=== PATIENT | male | born 1995 | race Caucasian/White ===

== ENCOUNTER 2016-08-09 20:19 | Inpatient (IN) | payer OTHER ==
--- NOTE | 2016-08-09 21:27 | PDOC ---
History of Present Illness - General Chief Complaint: Pain Stated Complaint: STOMACH ACHE Time Seen by Provider: 08/09/16 21:02 History Source: Patient, Parent(s) Exam Limitations: No Limitations - History of Present Illness Travel History: No Timing/Duration: reports: intermittent Quality: reports: moderate Abdominal Pain Onset Location: reports: RLQ, LLQ Pain Radiation: reports: no radiation Past History - Travel Traveled outside of the country in the last 30 days: No Close contact w/someone who was outside of country & ill: No - Past Medical History Allergies/Adverse Reactions: Allergies Allergy/AdvReac Type Severity Reaction Status Date / Time No Known Allergies Allergy Verified 08/09/16 20:45 Home Medications: Ambulatory Orders NK [No Known Home Medication] 08/09/16 - Psycho/Social/Smoking Cessation Hx Suicidal Ideation: No Smoking History: Never smoked Have you smoked in the past 12 months: No Information on smoking cessation initiated: No Hx Alcohol Use: No Drug/Substance Use Hx: No Abd/GI Specific PMHX - Complaint Specific PMHX Colitis: No Diverticulitis: No Gall Bladder Disease: No GERD: No Review of Systems - Review of Systems Able to Perform ROS?: Yes Comments:: 08/09/16 21:43 CONSTITUTIONAL: Absent: fever, chills, diaphoresis, generalized weakness, malaise, loss of appetite HEENT: Absent: rhinorrhea, nasal congestion, throat pain, throat swelling, difficulty swallowing, mouth swelling, ear pain, eye pain, visual Changes CARDIOVASCULAR: Absent: chest pain, loss of consciousness, palpitations, irregular heart rate, peripheral edema RESPIRATORY: Absent: cough, shortness of breath, dyspnea with exertion, orthopnea, wheezing, stridor, hemoptysis GASTROINTESTINAL: RLQ>LLQ pain Absent: abdominal distension, nausea, vomiting, diarrhea, constipation, melena, hematochezia GENITOURINARY: Absent: dysuria, frequency, urgency, hesitancy, hematuria, flank pain, genital pain MUSCULOSKELETAL: Absent: myalgia, arthralgia, joint swelling SKIN: Absent: rash, itching, pallor HEMATOLOGIC/IMMUNOLOGIC: Absent: easy bleeding, easy bruising, lymphadenopathy, frequent infections ENDOCRINE: Absent: unexplained weight gain, unexplained weight loss, heat intolerance, cold intolerance NEUROLOGIC: Absent: headache, focal weakness or paresthesias, dizziness, unsteady gait, seizure, mental status changes, bladder or bowel incontinence PSYCHIATRIC: Absent: anxiety, depression, suicidal or homicidal ideation, hallucinations. Is the patient limited Samoan proficient: No *Physical Exam - Vital Signs Last Vital Signs Temp Pulse Resp BP Pulse Ox 98.5 F 85 16 124/70 99 08/09/16 20:46 08/09/16 20:46 08/09/16 20:46 08/09/16 20:46 08/09/16 20:46 - Physical Exam Comments: 08/09/16 21:44 GENERAL: Well developed, well nourished. Awake and alert. No acute distress. HEENT: Normocephalic, atraumatic. PERRLA, EOMI. No conjunctival pallor. Sclera are non- icteric. Moist mucous membranes. Oropharynx is clear. NECK: Supple. Full ROM. No JVD. Carotid pulses 2+ and symmetric, without bruits. No thyromegaly. No lymphadenopathy. CARDIOVASCULAR: Regular rate and rhythm. No murmurs, rubs, or gallops. Distal pulses are 2+ and symmetric. PULMONARY: No evidence of respiratory distress. Lungs clear to auscultation bilaterally. No wheezing, rales or rhonchi. ABDOMINAL: Diffused abd pain Soft. Non-distended. No rebound or guarding. No organomegaly. Normoactive bowel sounds. MUSCULOSKELETAL Normal range of motion at all joints. No bony deformities or tenderness. No CVA tenderness. EXTREMITIES: No cyanosis. No clubbing. No edema. No calf tenderness. SKIN: Warm and dry. Normal capillary refill. No rashes. No jaundice. NEUROLOGICAL: Alert, awake, appropriate. Cranial nerves 2-12 intact. No deficits to light touch and temperature in face, upper extremities and lower extremities. No motor deficits in the in face, upper extremities and lower extremities. Normoreflexic in the upper and lower extremities. Normal speech. Toes are down- going bilaterally. Gait is normal without ataxia. PSYCHIATRIC: Cooperative. Good eye contact. Appropriate mood and affect. ED Treatment Course - LABORATORY CBC & Chemistry Diagram: 08/10/16 05:30 08/10/16 05:30 - RADIOLOGY Radiograph Interpretation: 08/10/16 00:45 Patient Name: Jose E Allen THIS IS A PRELIMINARYREPORT FROM IMAGING MANAGER TREASURY EXAM: CT abdomen and pelvis with contrast IMAGES: 443 INDICATION: Right lower quadrant pain DATE OF SERVICE: 2016-08-09 23:41:19.0 COMPARISON: none FINDINGS: Lung bases are clear. The visualized cardiac chambers are normal size and configuration. Normal liver, gallbladder, pancreas, spleen, adrenal glands and kidneys. The stomach and abdominal small and large bowel are normal. There is no aortic aneurysm. There is no significant retroperitoneal lymphadenopathy. The appendix is dilated, does not contain oral contrast, contains a proximal appendicolith, consistent with acute appendicitis. No abscess or free air however there is a small to moderate amount of pelvic free fluid with several mildly secondarily inflamed small bowel loops.. The urinary bladder and prostate gland are normal. There is no significant pelvic lymphadenopathy. IMPRESSION: Acute appendicitis without abscess or free air. Small to moderate amount of pelvic free fluid with secondarily inflamed small bowel loops. THIS DOCUMENT HAS BEEN ELECTRONICALLY SIGNED Carlos Montelongo MD 08/10/2016 00:34 ELDA Biggs Please call [facility] D[facility] Cashier [phone] with questions. End of Report Content Atm Technician: ([email or web address]) Begin of Report Content Referring Physician: Amilcar Pierre Patient Name: Jose E Allen THIS IS A PRELIMINARYREPORT FROM IMAGING MANAGER TREASURY EXAM: CT abdomen and pelvis with contrast IMAGES: 443 INDICATION: Right lower quadrant pain DATE OF SERVICE: 2016-08-09 23:41:19.0 COMPARISON: none FINDINGS: Lung bases are clear. The visualized cardiac chambers are normal size and configuration. Normal liver, gallbladder, pancreas, spleen, adrenal glands and kidneys. The stomach and abdominal small and large bowel are normal. There is no aortic aneurysm. There is no significant retroperitoneal lymphadenopathy. The appendix is dilated, does not contain oral contrast, contains a proximal appendicolith, consistent with acute appendicitis. No abscess or free air however there is a small to moderate amount of pelvic free fluid with several mildly secondarily inflamed small bowel loops.. The urinary bladder and prostate gland are normal. There is no significant pelvic lymphadenopathy. IMPRESSION: Acute appendicitis without abscess or free air. Small to moderate amount of pelvic free fluid with secondarily inflamed small bowel loops. THIS DOCUMENT HAS BEEN ELECTRONICALLY SIGNED Carlos Montelongo MD 08/10/2016 00:34 ELDA Biggs Please call [facility] Cashier [phone] with questions. 08/10/16 03:35 Progress Note - Progress Note Progress Note: 20-year-old male presents to the emergency department complaining of lower, RLQ >LLQ abdominal pain since yesterday afternoon. Pain is associated with nausea and one bout of vomiting(nonbilious, nonbloody) without fever/chills. Pain is described as 8/10 intermittent pressure. Pain is exacerbated on movement and is alleviated minimally when laying supine. 0001hrs; Called Dr. Wilkinson/Surgery communications strategist [phone] 0030hrs: Called DR. Wilkinson/surgery communications strategist no response from Surgery communications strategist 0040hrs: Hospitalist notified for admission 0651hrs: Numerous calls were placed to Dr. Wilkinson/surgery communications strategist/no response 0727hrs; Spoke to Dr. Wilkinson/surgery communications strategist. will take pt for Lap Appy today *DC/Admit/Observation/Transfer Diagnosis at time of Disposition: Appendicitis, acute Qualifiers: Acute appendicitis type: unspecified acute appendicitis type Qualified Code(s) : K35.80 - Unspecified acute appendicitis - Discharge Dispostion Condition at time of disposition: Guarded Admit: Yes
[2016-08-09] MEDS ORDERED: SODIUM CHLORIDE 1,000 ML IV STA (21:33)
[2016-08-09 21:51] LABS: URINE APPEARANCE CLEAR; URINE BILIRUBIN NEGATIVE (NEGATIVE); URINE BLOOD NEGATIVE (NEGATIVE); URINE COLOR AMBER; URINE GLUCOSE (UA) NEGATIVE (NEGATIVE); URINE KETONE 1+ (NEGATIVE); URINE NITRITE NEGATIVE (NEGATIVE); URINE UROBILINOGEN NEGATIVE E.U./dl (0.2-1.0)
[2016-08-09 21:55] LABS: URINE LEUK ESTERASE 1+ (NEGATIVE); URINE PROTEIN 2+ (NEGATIVE)
[2016-08-09 21:57] LABS: BASOPHIL 0.3 % (0-2.0); EOSINOPHIL 0.1 % (0-4.5); MCH 29.5 pg (25.7-33.7); MCHC 32.8 g/dl (32.0-35.9); MEAN CELL VOLUME 90.1 fl (80-96); MEAN PLT VOLUME 7.8 fl (7.5-11.1); PLATELET COUNT 231 K/MM3 (134-434); WHITE BLOOD COUNT 14.8 K/mm3 (4.0-10.0)
[2016-08-09 21:58] LABS: URINE MUCUS MANY; URINE RBC 13 /hpf (0-3); URINE WBC 53 /hpf (3-5)
[2016-08-09 22:17] LABS: ALBUMIN 4.4 g/dl (3.4-5.0); ANION GAP 7 (8-16); BILIRUBIN,TOTAL 1.5 mg/dL (0.2-1.0); CALCIUM 8.8 mg/dL (8.5-10.1); CO2 30 mmol/L (21-32); CREATININE 0.9 mg/dL (0.7-1.3); GLUCOSE,RANDOM 107 mg/dL (74-106); SGOT/AST 16 U/L (15-37); SGPT/ALT 21 U/L (12-78); TOT PROT 7.4 g/dl (6.4-8.2)
[2016-08-09 22:18] LABS: ALK PHOS 110 U/L (45-117)
[2016-08-10] MEDS ORDERED: CEFTRIAXONE 1 GM in DEXTROSE 5%-WATER - 50 ML IVPB ONE (00:42)
[2016-08-10] MEDS ORDERED: METRONIDAZOLE 500 MG PREMIXED 100 ML IVPB ONE ×2 (00:43→01:01)
[2016-08-10] MEDS ORDERED: CEFTRIAXONE 50 ML ONE ×2 (00:59→01:00)
[2016-08-10] MEDS ORDERED: DEXTROSE 5%-0.45% SALINE 1,000 ML IV SCH (01:00)
--- NOTE | 2016-08-10 01:03 | HP ---
CHIEF COMPLAINT: RLQ, LLQ pain PCP: HISTORY OF PRESENT ILLNESS: This is a 20 year old male with no past medical history. Who presents to the emergency department with RLQ, LLQ pain and non bilious vomiting x1 day. Patient is Tajik speaking only. [employer] used name- Guero, #[id number]. Patient reports the pain is sharp, radiating and pain is worse on movement. Patient reports dysuria. Patient denies fever, chills, cough, dizziness, SOB, CP , diarrhea, constipation. ER course was notable for: (1) WBC 14.8 (2) CTAP- Acute Appendicitis without abscess or free air. (3) Recent Travel: None PAST MEDICAL HISTORY: None PAST SURGICAL HISTORY: None Social History: Smoking: None Alcohol: Occasional- Beer Drugs: None Family History: None Allergies No Known Allergies Allergy (Verified 08/09/16 20:45) HOME MEDICATIONS: Medication Instructions Recorded NK [No Known Home Medication] 08/09/16 REVIEW OF SYSTEMS CONSTITUTIONAL: Absent: fever, chills, diaphoresis, generalized weakness, malaise, loss of appetite, weight change HEENT: Absent: rhinorrhea, nasal congestion, throat pain, throat swelling, difficulty swallowing, mouth swelling, ear pain, eye pain, visual changes CARDIOVASCULAR: Absent: chest pain, syncope, palpitations, irregular heart rate, lightheadedness , peripheral edema RESPIRATORY: Absent: cough, shortness of breath, dyspnea with exertion, orthopnea, wheezing, stridor, hemoptysis GASTROINTESTINAL: abdominal pain, nausea, vomiting Absent: abdominal distension, diarrhea, constipation, melena, hematochezia GENITOURINARY: dysuria Absent: frequency, urgency, hesitancy, hematuria, flank pain, genital pain MUSCULOSKELETAL: Absent: myalgia, arthralgia, joint swelling, back pain, neck pain SKIN: Absent: rash, itching, pallor HEMATOLOGIC/IMMUNOLOGIC: Absent: easy bleeding, easy bruising, lymphadenopathy, frequent infections ENDOCRINE: Absent: unexplained weight gain, unexplained weight loss, heat intolerance, cold intolerance NEUROLOGIC: Absent: headache, focal weakness or paresthesias, dizziness, unsteady gait, seizure, mental status changes, bladder or bowel incontinence PSYCHIATRIC: Absent: anxiety, depression, suicidal or homicidal ideation, hallucinations. PHYSICAL EXAMINATION Vital Signs - 24 hr 08/09/16 20:46 Temperature 98.5 F Pulse Rate 85 Respiratory 16 Rate Blood Pressure 124/70 O2 Sat by Pulse 99 Oximetry (%) GENERAL: Awake, alert, and fully oriented, in no acute distress. HEAD: Normal with no signs of trauma. EYES: Pupils equal, round and reactive to light, extraocular movements intact, sclera anicteric, conjunctiva clear. No lid lag. EARS, NOSE, THROAT: Ears normal, nares patent, oropharynx clear without exudates. Moist mucous membranes. NECK: Normal range of motion, supple without lymphadenopathy, JVD, or masses. LUNGS: Breath sounds equal, clear to auscultation bilaterally. No wheezes, and no crackles. No accessory muscle use. HEART: Regular rate and rhythm, normal S1 and S2 without murmur, rub or gallop. ABDOMEN:+RLQ, LLQ, LMQ tenderness, hypoactive bowel sounds,+rebound, +psoas, Soft, not distended, no guarding, no masses. No hepatomegaly or splenomegaly. MUSCULOSKELETAL: Normal range of motion at all joints. No bony deformities or tenderness. No CVA tenderness. UPPER EXTREMITIES: 2+ pulses, warm, well-perfused. No cyanosis. No clubbing. Cap refill <2 seconds. No peripheral edema. LOWER EXTREMITIES: 2+ pulses, warm, well-perfused. No calf tenderness. No peripheral edema. NEUROLOGICAL: Cranial nerves II-XII intact. Normal speech. Gait no observed. PSYCHIATRIC: Cooperative. Good eye contact. Appropriate mood and affect. SKIN: Warm, dry, normal turgor, no rashes or lesions noted. Laboratory Results - last 24 hr 08/09/16 08/09/16 08/09/16 21:30 21:30 21:30 WBC 14.8 H RBC 4.66 Hgb 13.7 Hct 42.0 MCV 90.1 MCHC 32.8 RDW 13.0 Plt Count 231 MPV 7.8 Neutrophils % 89.0 H Lymphocytes % 4.2 L Monocytes % 6.4 Eosinophils % 0.1 Basophils % 0.3 Sodium 137 Potassium 4.1 Chloride 100 Carbon Dioxide 30 Anion Gap 7 L BUN 14 Creatinine 0.9 Creat Clearance w eGFR > 60 Random Glucose 107 H Calcium 8.8 Total Bilirubin 1.5 H AST 16 ALT 21 Alkaline Phosphatase 110 Total Protein 7.4 Albumin 4.4 Urine Color Sugey Urine Appearance Clear Urine pH 5.0 Ur Specific [place] 1.039 H Urine Protein 2+ H Urine Glucose (UA) Negative Urine Ketones 1+ H Urine Blood Negative Urine Nitrite Negative Urine Bilirubin Negative Urine Urobilinogen Negative Ur Leukocyte Esterase 1+ H Urine RBC 13 Urine WBC 53 Ur Epithelial Cells Rare Urine Mucus Many ASSESSMENT/PLAN: This is a 20 year old male with no PMHx. Who presented to the ED with abdominal pain and vomiting x 1 day. Admitted for Acute Appendicitis for further evaluation of their emergent condition. Plan: 1. Acute Appendicitis - Admit m/s - WBC 14.8 with left shift - CTAP- Acute AP without abscess or free air - Rocephin, Flagyl given in ED - Appreciate Surgical Consult - NPO - IVF - Continue Rocephin, Flagyl - Morphine Sulfate 2mg Q4h prn - Zofran IV - Monitor vitals - Tylenol IV prn - Monitor CBC - added on labs for pre-op 2. F/E/N - D51/2NS@100cc/hr - Replete lytes prn - NPO 3. DVT Prophylaxis - OOB - SCDs Code Status: Patient is a Full Code Problem List - Problem (1) Appendicitis, acute Code(s): K35.80 - UNSPECIFIED ACUTE APPENDICITIS Qualifiers: Acute appendicitis type: unspecified acute appendicitis type Qualified Code(s): K35.80 - Unspecified acute appendicitis (2) DVT prophylaxis Code(s): FAU8011 - Visit type - Emergency Visit Emergency Visit: Yes ED Registration Date: 08/09/16 Care time: The patient presented to the Emergency Department on the above date and was hospitalized for further evaluation of their emergent condition. - New Patient This patient is new to me today: Yes Date on this admission: 08/10/16 - Critical Care Critical Care patient: No
[2016-08-10] MEDS ORDERED: morphine CARPU-JECT 2 MG/1 ML DISP.SYRIN ONE ×2 (01:44→06:52)
[2016-08-10] MEDS ORDERED: ONDANSETRON 4 MG/2 ML VIAL IVPUSH PRN ×2 (01:45→10:49)
[2016-08-10] MEDS: morphine CARPU-JECT 4 MG/1 ML DISP.SYRIN IVPUSH PRN ×2 (01:50→06:55)
[2016-08-10 07:15] LABS: BASOPHIL 0.1 % (0-2.0); MCH 30.3 pg (25.7-33.7); MCHC 33.4 g/dl (32.0-35.9); MEAN CELL VOLUME 90.7 fl (80-96); MEAN PLT VOLUME 7.9 fl (7.5-11.1); NEUTROPHILS 85.6 % (42.8-82.8); PLATELET COUNT 202 K/MM3 (134-434); RDW 13.2 % (11.9-15.9); WHITE BLOOD COUNT 17.5 K/mm3 (4.0-10.0)
[2016-08-10 07:39] LABS: CALCIUM 8.1 mg/dL (8.5-10.1); CREATININE 0.7 mg/dL (0.7-1.3)
[2016-08-10] MEDS ORDERED: ONDANSETRON 4 MG/2 ML VIAL ONE ×2 (08:35→09:47)
--- NOTE | 2016-08-10 08:57 | CONSULT ---
Consult Consult Specialty:: Surgery Reason for Consultation:: Acute appendicitis - History of Present Illness History of Present Illness: 20 male presents for abdominal pain x 1- 2 days Pain began near umbilicus and has become more prominent in the RLQ + Nausea No diarrhea No previous similar episodes - History Source History Provided By: Patient, Medical Record Limitations to Obtaining History: Language Barrier (Used phone translation services) - Past Surgical History Past Surgical History: Yes: None - Alcohol/Substance Use Hx Alcohol Use: No - Smoking History Smoking history: Never smoked Have you smoked in the past 12 months: No - Social History ADL: Independent Home Medications - Allergies Allergies/Adverse Reactions: Allergies Allergy/AdvReac Type Severity Reaction Status Date / Time No Known Allergies Allergy Verified 08/09/16 20:45 - Home Medications Home Medications: Ambulatory Orders NK [No Known Home Medication] 08/09/16 Family Disease History - Family Disease History Family History: Unremarkable Review of Systems - Review of Systems Constitutional: denies: Chills, Fever Neck: reports: No Symptoms Cardiovascular: denies: Chest Pain Respiratory: denies: Cough Gastrointestinal: reports: Abdominal Pain, Nausea. denies: Diarrhea Genitourinary: reports: No Symptoms Neurological: denies: Change in LOC Pain Intensity: 4 Physical Exam Vital Signs: Vital Signs Temperature 97.3 F L 08/10/16 05:35 Pulse Rate 78 08/10/16 05:35 Respiratory Rate 20 08/10/16 05:35 Blood Pressure 109/47 08/10/16 05:35 O2 Sat by Pulse Oximetry (%) 98 08/10/16 05:35 Constitutional: Yes: Calm Neck: Yes: Supple Cardiovascular: Yes: Regular Rate and Rhythm Respiratory: Yes: CTA Bilaterally Gastrointestinal: Yes: Soft, Tenderness (RLQ). No: Distention Neurological: Yes: Alert, Oriented Labs: CBC, BMP 08/10/16 05:30 08/10/16 05:30 Imaging - Results Cat Scan: Report Reviewed, Image Reviewed Problem List - Problems (1) Appendicitis, acute Code(s): K35.80 - UNSPECIFIED ACUTE APPENDICITIS Qualifiers: Acute appendicitis type: unspecified acute appendicitis type Qualified Code(s): K35.80 - Unspecified acute appendicitis Assessment/Plan 20 male with acute appendicitis No abscess on CT For laparoscopic possible open appendectomy NPO Antibiotics Risks and benefits explained Understands and agrees
[2016-08-10] MEDS ORDERED: PROPOFOL 20 ML ONE (09:30)
[2016-08-10] MEDS ORDERED: LIDOCAINE HCL/PF 2% SDV 5ML VIAL ONE (09:30)
[2016-08-10] MEDS ORDERED: SUCCINYLCHOLINE CHLORIDE 200 MG/10 ML VIAL ONE (09:31)
[2016-08-10] MEDS ORDERED: ceFAZolin SODIUM 1 GM VIAL IVPB ONE (09:45)
[2016-08-10] MEDS ORDERED: DEXAMETHASONE SOD PHOSPHATE 4 MG/1 ML VIAL ONE (09:47)
[2016-08-10] MEDS ORDERED: ROCURONIUM BROMIDE 50 MG/5 ML VIAL ONE (09:47)
[2016-08-10] MEDS ORDERED: ceFAZolin SODIUM 1 GM VIAL ONE (09:47)
[2016-08-10] MEDS ORDERED: KETOROLAC TROMETHAMINE 30 MG/1 ML VIAL ONE (09:47)
[2016-08-10] MEDS ORDERED: METRONIDAZOLE 500 MG PREMIXED 100 ML IVPB SCH (10:00)
[2016-08-10] MEDS ORDERED: GLYCOPYRROLATE 0.2 MG/1 ML VIAL ONE ×2 (10:22)
[2016-08-10] MEDS ORDERED: NEOSTIGMINE METHYLSULFATE 0.5 MG/ML - 10 ML MDV ONE (10:22)
[2016-08-10] MEDS ORDERED: BUPIVACAINE HCL/PF 0.5% (5MG/ML) 10 ML VIAL ONE (10:28)
[2016-08-10] MEDS ORDERED: BUPIVACAINE HCL/PF 0.5% (5MG/ML) 10 ML VIAL IJ ONE ×2 (10:31)
[2016-08-10] MEDS ORDERED: oxyCODONE HCL 5 MG TABLET PO PRN ×2 (10:49→11:45)
[2016-08-10] MEDS ORDERED: PROMETHAZINE HCL 25 MG/1 ML VIAL IVPUSH PRN (10:49)
--- NOTE | 2016-08-10 11:11 | OP ---
Operative Note - Note: Operative Date: 08/10/16 Pre-Operative Diagnosis: Acute appendicitis Operation: Laparoscopic appendectomy Findings: Perforated necrotic appendix with purulence Post-Operative Diagnosis: Other (Perforated necrotic appendicitis with purulent intraabdominal fluid) Surgeon: Toro Wilkinson Grain Merchandiser: Kayy Curiel Anesthesia: General Specimens Removed: Appendix Estimated Blood Loss (mls): 20 Operative Report Dictated: Yes
[2016-08-10] MEDS ORDERED: morphine CARPU-JECT 4 MG/1 ML DISP.SYRIN IVPUSH PRN (11:45)
[2016-08-10] MEDS ORDERED: PIPERACILLIN/TAZOB 3.375 GM/50 ML PRE-DOCKED IVPB ONE ×2 (11:45→18:00)
[2016-08-10] MEDS ORDERED: HYDROmorphone HCL CARPU-JECT 1 MG/1 ML DISP.SYRIN IVPB PRN (12:32)
--- NOTE | 2016-08-10 12:48 | OP ---
DATE OF OPERATION: 08/10/2016 PREOPERATIVE DIAGNOSIS: Acute appendicitis. POSTOPERATIVE DIAGNOSIS: Perforated necrotic appendicitis with purulent intraabdominal collection. PROCEDURE: Laparoscopic appendectomy. ANESTHESIA: GET. SURGEON: Jessica Wilkinson MD SHAKER OUT: Michelle Curiel SPECIMEN: Appendix. DRAINS: NBA x1. REASON FOR PROCEDURE: This is a 20-year-old male who presented to the hospital with right lower quadrant pain x1-[address] of the abdomen and pelvis demonstrated acute appendicitis without abscess formation. His white count was noted to be 14, which increased to 17. He was placed n.p.o. and placed on antibiotics. He was consented for a laparoscopic, possible open, appendectomy. The risks and benefits of the procedure were explained. These included bleeding, infection, hernia, OK, DVT, PE, injury to surrounding intraabdominal structures including the bowel, colon, ureter, bladder, as well as other intraabdominal organs, staple line dehiscence, abscess formation as some of the complications. Patient understood and signed informed consent. DESCRIPTION OF PROCEDURE: The patient was placed supine on the operating table. He underwent general endotracheal intubation. A Crowley catheter was inserted. The abdomen was prepped and draped in the usual sterile fashion. Time-out was performed. An infraumbilical incision was made, and entrance to the abdominal cavity was obtained using a 5-mm optical trocar under direct visualization with laparoscope. Pneumoperitoneum was established. Immediately, it was noted that there was extensive purulent discharge throughout the abdominal cavity and fibrinous exudate. A 5- mm optical trocar was then placed in the suprapubic area, and a 12-mm trocar was placed in the left lower quadrant. The patient was placed in Trendelenburg right-side- up position. Carefully, the bowel was run towards the juncture of the terminal ileum and cecum. Again, extensive fibrinous discharge was noted, and then, each bowel loop had to be teased off of the adjacent bowel loop carefully. The appendix was identified and was noted to be adherent to the right lateral abdominal wall. The base of the appendix was noted. A window was created within the mesentery using a [place] dissector. The appendix was also noted to be freely perforated with purulent discharge and necrosis from the tip to at least its midway point. The base of the appendix was transected using an Endo DANNIELLE stapler with a white load. The appendix was freed from the right lateral abdominal wall using hook electrocautery. The mesoappendix was then stapled using an Endo DANNIELLE stapler with a white load. The appendix was placed in an EndoCatch bag. Clips were used to further secure the staple line at the base of the appendix. Hemostasis was noted. Copious irrigation suction was performed until clear. Because of the perforation, a flat NBA drain was placed through the suprapubic trocar site. The fascia at the 12-mm site was closed laparoscopically using a 0 Vicryl suture with a Shawn-Jaqueline device. Again, hemostasis was noted, and again, no further purulence was noted. All fluid was suctioned from the abdominal cavity including the right upper quadrant, right lateral wall, and pelvis. The specimen was removed and sent off the field. Pneumoperitoneum was desufflated. The drain was secured with a 2-0 silk suture. The fascial suture was secured. Marcaine was injected at all incision sites. NBA drain was placed to self-suction. The 12-mm trocar site and the infraumbilical incision site were closed using 4-0 Biosyn. Sterile dressings were applied. The patient tolerated the procedure well and was transferred to the recovery room in stable condition. He was continued on IV antibiotics. The description of the findings was explained to both him and his family. JESSICA WILKINSON M.D. [id number] MTDD
--- NOTE | 2016-08-10 14:49 | SURG ---
Surgery Wound Care Technician Note Wound Care Technician: Kayy Curiel PA-C Date of Service: 08/10/16 Diagnosis: Acute appendicitis, Perforated necrotic appendix with purulence Procedure: Laparoscopic appendectomy I was present for the entirety of the operative procedure. For further detail, please refer to operative report. Visit type - Case Type Case Type: ED Admission - New patient This patient is new to me today: Yes Date on this admission: 08/10/16
[2016-08-10] MEDS: SODIUM CHLORIDE 1,000 ML IV SCH (15:40)
--- NOTE | 2016-08-10 15:58 | HOSP ---
Physical Examination Vital Signs: Vital Signs Temperature 100 F H 08/10/16 10:45 Pulse Rate 77 08/10/16 15:00 Respiratory Rate 18 08/10/16 15:00 Blood Pressure 120/51 08/10/16 15:00 O2 Sat by Pulse Oximetry (%) 99 08/10/16 15:00 Findings/Remarks: Subjective: The patient was seen and examined in the PACU. He denies any pain at this time. Discussed with Dr. Wilkinson who states the patient will need IV abx x72 hours Current Medications Generic Name Dose Route Start Last Admin Trade Name Freq PRN Reason Stop Dose Admin Enoxaparin Sodium 40 mg 08/11/16 10:00 Lovenox - SQ DAILY JEEWLL Hydromorphone HCl 1 mg 08/10/16 12:32 Dilaudid Injection - IVPB Q4H PRN PAIN Sodium Chloride 1,000 mls @ 150 mls/hr 08/10/16 11:15 Normal Saline - IV ASDIR JEWELL Metronidazole 100 mls @ 100 mls/hr 08/10/16 18:00 Flagyl 500mg Premixed Ivpb - IVPB Q8H-IV JEWELL Oxycodone HCl 10 mg 08/10/16 11:45 Roxicodone - PO 08/11/16 10:48 Q4H PRN SEVERE PAIN Piperacillin Sod/Tazobactam Sod 3.375 gm 08/10/16 18:00 Zosyn 3.375gm Ivpb (Pre-Docked) IVPB Q8H-IV JEWELL Objective: Vital Signs Period Temp Pulse Resp BP Sys/Reagan Pulse Ox Last 24 Hr 97.3 F-100 F 69-93 16-20 109-135/47-70 98-100 Physical Exam: General: NAD, A&Ox3 Lungs: CTA bilaterally Heart: RRR, S1S2 Abd: Lap sites x2 with dressing, c/d/i. RLQ NBA drain with serosangenous drainage. Soft, non-distended Ext: Warm, well-perfused. 2+ DP/PT bilaterally Neuro: CN 2-12 intact CBCD WBC 17.5 K/mm3 (4.0-10.0) H 08/10/16 05:30 RBC 4.15 M/mm3 (4.00-5.60) 08/10/16 05:30 Hgb 12.6 GM/dL (11.7-16.9) 08/10/16 05:30 Hct 37.7 % (35.4-49) 08/10/16 05:30 MCV 90.7 fl (80-96) 08/10/16 05:30 MCHC 33.4 g/dl (32.0-35.9) 08/10/16 05:30 RDW 13.2 % (11.9-15.9) 08/10/16 05:30 Plt Count 202 K/MM3 (134-434) 08/10/16 05:30 MPV 7.9 fl (7.5-11.1) 08/10/16 05:30 CMP Sodium 135 mmol/L (136-145) L 08/10/16 05:30 Potassium 4.3 mmol/L (3.5-5.1) 08/10/16 05:30 Chloride 101 mmol/L (98-107) 08/10/16 05:30 Carbon Dioxide 25 mmol/L (21-32) 08/10/16 05:30 Anion Gap 9 (8-16) 08/10/16 05:30 BUN 11 mg/dL (7-18) D 08/10/16 05:30 Creatinine 0.7 mg/dL (0.7-1.3) D 08/10/16 05:30 Creat Clearance w eGFR > 60 (>60) 08/09/16 21:30 Random Glucose 103 mg/dL (74-106) 08/10/16 05:30 Calcium 8.1 mg/dL (8.5-10.1) L 08/10/16 05:30 Total Bilirubin 1.5 mg/dL (0.2-1.0) H 08/09/16 21:30 AST 16 U/L (15-37) 08/09/16 21:30 ALT 21 U/L (12-78) 08/09/16 21:30 Alkaline Phosphatase 110 U/L (45-117) 08/09/16 21:30 Total Protein 7.4 g/dl (6.4-8.2) 08/09/16 21:30 Albumin 4.4 g/dl (3.4-5.0) 08/09/16 21:30 Assessment: This is a 20 year old male with no significant PMHx who presented to the ED with RLQ pain, nausea, vomiting x1 days and was found to have acute appendicitis Plan: 1) GI: Acute appendicitis s/p lap appendectomy - Per surgery, perforated necrotic appendicitis with purulent intraabdominal fluid - Continue Zosyn, Flagyl per surgery - Monitor WBC, remains elevated - Tmax 100.0 - Clear liquid diet - Appreciate surgery consult - F/u ID consult 2) F/E/N: - Clear liquid diet - Monitor electrolytes 3) Prophylaxis: - Lovenox 40mg sq daily - OOB ambulating 4) Dispo: - Requires 72 hours of IV abx per surgery CODE STATUS: FULL CODE
[2016-08-10 16:35] VITALS: BMI 24.0
[2016-08-10] MEDS: METRONIDAZOLE 500 MG PREMIXED 100 ML IVPB SCH (17:07)
[2016-08-10] MEDS: PIPERACILLIN/TAZOB 3.375 GM/50 ML PRE-DOCKED IVPB SCH (18:12)
[2016-08-11] MEDS: SODIUM CHLORIDE 1,000 ML IV SCH ×2 (00:40→11:38)
[2016-08-11] MEDS: METRONIDAZOLE 500 MG PREMIXED 100 ML IVPB SCH ×3 (01:30→17:06)
[2016-08-11] MEDS: PIPERACILLIN/TAZOB 3.375 GM/50 ML PRE-DOCKED IVPB SCH (02:09)
[2016-08-11 09:02] LABS: BASOPHIL 0.1 % (0-2.0); EOSINOPHIL 0.1 % (0-4.5); MCH 30.2 pg (25.7-33.7); MCHC 33.2 g/dl (32.0-35.9); MEAN CELL VOLUME 91.2 fl (80-96); MEAN PLT VOLUME 8.2 fl (7.5-11.1); NEUTROPHILS 86.4 % (42.8-82.8); PLATELET COUNT 189 K/MM3 (134-434); RDW 12.7 % (11.9-15.9); WHITE BLOOD COUNT 14.2 K/mm3 (4.0-10.0)
--- NOTE | 2016-08-11 09:15 | PN ---
Progress Note (short form) - Note Progress Note: ID Consult for this 20 year old male originally from [place] who has been operated on for appendcitis found to be perforated. today is ay 1 post op and he is doing well. [place] been in [place] with no prior medical history Currently on Zosyn No operative culture sent. Selected Entries 08/11/16 06:51 Temperature 98.3 F Pulse Rate 61 Respiratory 18 Rate Blood Pressure 133/73 Lung Clear ausculation Cor S1 S RR Abd Drain lower abd soft post op Microbiology 08/10/16 01:45 Blood - Peripheral Venous Blood Culture - Preliminary NO GROWTH OBTAINED AFTER 24 HOURS, INCUBATION TO CONTINUE FOR 4 DAYS. 08/10/16 01:45 Blood - Peripheral Venous Blood Culture - Preliminary NO GROWTH OBTAINED AFTER 24 HOURS, INCUBATION TO CONTINUE FOR 4 DAYS. Laboratory Tests 08/09/16 08/10/16 08/11/16 21:30 05:30 06:45 WBC 14.2 H Hgb 11.8 Plt Count 189 BUN 11 D Creatinine 0.7 D Urine WBC 53 Assessment Necrotic perf appendix day 1 post op Also has UTI Plan Ceftriaxone 2 grs and metronidazole 500mg q8H Urine c/s HIV testing Problem List - Problems (1) Appendicitis, acute Code(s): K35.80 - UNSPECIFIED ACUTE APPENDICITIS Qualifiers: Acute appendicitis type: unspecified acute appendicitis type Qualified Code(s): K35.80 - Unspecified acute appendicitis
--- NOTE | 2016-08-11 09:48 | PN ---
Progress Note (short form) - Note Progress Note: General Surgery- Dr. Wilkinson Patient seen and examined. Patient is feeling well, having some pain with movement, but this pain is tolerable and controlled. Patient has been tolerating his clear liquid diet without nausea or vomiting. He has been voiding spontaneously. He has no other complaints. Denies F/C/N/V. Last Vital Signs Temp Pulse Resp BP Pulse Ox 98.3 F 61 18 133/73 97 08/11/16 06:51 08/11/16 06:51 08/11/16 06:51 08/11/16 06:51 08/10/16 21:00 CBC, BMP 08/11/16 06:45 BMP pending Blood cultures: No growth- prelim NBA drain 165 ml yesterday, 60 ml recorded today Exam: Gen: NAD, resting comfortably in bed Abd: soft, nondistended, tender to palp, NBA drain in place with serosanguineous drainage, dressings clean/dry/intact <Kayy Curiel - Last Filed: 08/11/16 12:49> - Note Progress Note: Agree POD 1 Laparoscopic appendectomy Pain controlled Tolerated clears AVSS Abd soft, NBA serosanguinous WBC 14 H/H stable Antibiotics Regular diet OOB CBC in am <Toro Wilkinson - Last Filed: 08/11/16 14:38> Problem List - Problems (1) Appendicitis, acute Assessment/Plan: POD#1 s/p laparoscopic appendectomy with perforated appendix Continue IV abx per ID, ceftriaxone and flagyl Continue pain control with oral pain medication, oxycodone and tylenol Monitor NBA output Advance to regular diet OOB, ambulate, DVT prophylaxis Code(s): K35.80 - UNSPECIFIED ACUTE APPENDICITIS <Kayy Curiel - Last Filed: 08/11/16 12:49> - Problems (1) Appendicitis, acute Code(s): K35.80 - UNSPECIFIED ACUTE APPENDICITIS Qualifiers: Acute appendicitis type: unspecified acute appendicitis type Qualified Code(s): K35.80 - Unspecified acute appendicitis <Toro Wilkinson - Last Filed: 08/11/16 14:38>
[2016-08-11 09:49] LABS: CALCIUM 8.2 mg/dL (8.5-10.1)
[2016-08-11 09:51] LABS: CREATININE 0.8 mg/dL (0.7-1.3)
[2016-08-11] MEDS: cefTRIAXone 2 GM/100 ML BAG (PRE-DOCKED) IVPB SCH (09:56)
[2016-08-11] MEDS: ENOXAPARIN NA (PORCINE) 40 MG/0.4 ML DISP.SYRIN SQ SCH (09:56)
[2016-08-11] MEDS ORDERED: CEFTRIAXONE 50 ML IVPB SCH (10:00)
[2016-08-11 11:55] LABS: HIV 1 & 2 AB NEGATIVE; HIV 1 AGp24 NEGATIVE
--- NOTE | 2016-08-11 12:28 | PN ---
Progress Note (short form) - Note Progress Note: ANESTHESIA POST-OP CHECK 20M S/P laparoscopic appendectomy under general anesthesia POD #1. No acute complaints, denies N/V. Pain 4/10, ambulating, tolerating PO. Vital Signs Temperature 98.4 F 08/11/16 10:00 Pulse Rate 55 L 08/11/16 10:00 Respiratory Rate 20 08/11/16 10:00 Blood Pressure 128/70 08/11/16 10:00 O2 Sat by Pulse Oximetry (%) 98 08/11/16 09:00 Active Medications Ceftriaxone Sodium (Rocephin 2gm Ivpb (Pre-Docked)) 2 gm IVPB DAILY [facility] Last Admin: 08/11/16 09:56 Dose: 2 gm Enoxaparin Sodium (Lovenox -) 40 mg SQ DAILY [facility] Last Admin: 08/11/16 09:56 Dose: 40 mg Hydromorphone HCl (Dilaudid Injection -) 1 mg IVPB Q4H PRN PRN Reason: PAIN Sodium Chloride (Normal Saline -) 1,000 mls @ 150 mls/hr IV ASDIR [facility] Last Admin: 08/11/16 11:38 Dose: Not Given Metronidazole (Flagyl 500mg Premixed Ivpb -) 100 mls @ 100 mls/hr IVPB Q8H-IV [facility] Last Admin: 08/11/16 10:41 Dose: 100 mls/hr Gen: Awake, alert No apparent anesthesia complications. Pain well controlled. Continue management as per primary team.
--- NOTE | 2016-08-11 12:49 | PN ---
Progress Note (short form) - Note Progress Note: Subjective: The patient was seen and examined at the bedside, he has no complaints at this time Diet increased to regular per surgery Current Medications Generic Name Dose Route Start Last Admin Trade Name Jana PRN Reason Stop Dose Admin Ceftriaxone Sodium 2 gm 08/11/16 10:00 08/11/16 09:56 Rocephin 2gm Ivpb (Pre-Docked) IVPB 2 gm DAILY JEWELL Administration Enoxaparin Sodium 40 mg 08/11/16 10:00 08/11/16 09:56 Lovenox - SQ 40 mg DAILY JEWELL Administration Hydromorphone HCl 1 mg 08/10/16 12:32 Dilaudid Injection - IVPB Q4H PRN PAIN Sodium Chloride 1,000 mls @ 150 mls/hr 08/10/16 11:15 08/11/16 11:38 Normal Saline - IV Not Given ASDIR JEWELL Metronidazole 100 mls @ 100 mls/hr 08/10/16 18:00 08/11/16 10:41 Flagyl 500mg Premixed Ivpb - IVPB 100 mls/hr Q8H-IV JEWELL Administration Objective: Vital Signs Period Temp Pulse Resp BP Sys/Reagan Pulse Ox Last 24 Hr 97.8 F-99.5 F 55-78 16-20 111-137/48-73 97-100 Physical Exam: General: NAD, A&Ox3 Lungs: CTA bilaterally Heart: RRR, S1S2 Abd: Lap sites x2 with dressing, c/d/i. RLQ NBA drain with serosangenous drainage. Soft, non-distended Ext: Warm, well-perfused. 2+ DP/PT bilaterally Neuro: CN 2-12 intact CBCD WBC 14.2 K/mm3 (4.0-10.0) H 08/11/16 06:45 RBC 3.90 M/mm3 (4.00-5.60) L 08/11/16 06:45 Hgb 11.8 GM/dL (11.7-16.9) 08/11/16 06:45 Hct 35.5 % (35.4-49) 08/11/16 06:45 MCV 91.2 fl (80-96) 08/11/16 06:45 MCHC 33.2 g/dl (32.0-35.9) 08/11/16 06:45 RDW 12.7 % (11.9-15.9) 08/11/16 06:45 Plt Count 189 K/MM3 (134-434) 08/11/16 06:45 MPV 8.2 fl (7.5-11.1) 08/11/16 06:45 CMP Sodium 139 mmol/L (136-145) 08/11/16 06:45 Potassium 3.9 mmol/L (3.5-5.1) 08/11/16 06:45 Chloride 105 mmol/L (98-107) 08/11/16 06:45 Carbon Dioxide 25 mmol/L (21-32) 08/11/16 06:45 Anion Gap 9 (8-16) 08/11/16 06:45 BUN 12 mg/dL (7-18) 08/11/16 06:45 Creatinine 0.8 mg/dL (0.7-1.3) 08/11/16 06:45 Creat Clearance w eGFR > 60 (>60) 08/09/16 21:30 Random Glucose 90 mg/dL (74-106) 08/11/16 06:45 Calcium 8.2 mg/dL (8.5-10.1) L 08/11/16 06:45 Total Bilirubin 1.5 mg/dL (0.2-1.0) H 08/09/16 21:30 AST 16 U/L (15-37) 08/09/16 21:30 ALT 21 U/L (12-78) 08/09/16 21:30 Alkaline Phosphatase 110 U/L (45-117) 08/09/16 21:30 Total Protein 7.4 g/dl (6.4-8.2) 08/09/16 21:30 Albumin 4.4 g/dl (3.4-5.0) 08/09/16 21:30 Microbiology 08/10/16 01:45 Blood - Peripheral Venous Blood Culture - Preliminary NO GROWTH OBTAINED AFTER 24 HOURS, INCUBATION TO CONTINUE FOR 4 DAYS. 08/10/16 01:45 Blood - Peripheral Venous Blood Culture - Preliminary NO GROWTH OBTAINED AFTER 24 HOURS, INCUBATION TO CONTINUE FOR 4 DAYS. Assessment: This is a 20 year old male with no significant PMHx who presented to the ED with RLQ pain, nausea, vomiting x1 days and was found to have acute appendicitis Plan: 1) GI: Acute appendicitis s/p lap appendectomy - Per surgery, perforated necrotic appendicitis with purulent intraabdominal fluid - Zosyn changed to Ceftriaxone 2g - Continue Flagyl - Monitor WBC, trending down - Continue NBA drain - Appreciate surgery consult - Appreciate ID consult 2) F/E/N: - Regular diet - Monitor electrolytes 3) Prophylaxis: - Lovenox 40mg sq daily - OOB ambulating 4) Dispo: - Once condition improves CODE STATUS: FULL CODE Visit type - Emergency Visit Emergency Visit: Yes ED Registration Date: 08/10/16 Care time: The patient presented to the Emergency Department on the above date and was hospitalized for further evaluation of their emergent condition. - New Patient This patient is new to me today: No - Critical Care Critical Care patient: No
[2016-08-11] MEDS ORDERED: oxyCODONE HCL 5 MG TABLET PO PRN (15:02)
[2016-08-12] MEDS: SODIUM CHLORIDE 1,000 ML IV SCH ×3 (01:05→18:49)
[2016-08-12] MEDS: METRONIDAZOLE 500 MG PREMIXED 100 ML IVPB SCH ×3 (02:04→17:54)
[2016-08-12] MEDS: ACETAMINOPHEN 325 MG TABLET (FP) PO PRN (05:25)
[2016-08-12 07:21] LABS: BASOPHIL 0.2 % (0-2.0); EOSINOPHIL 0.6 % (0-4.5); MCH 30.6 pg (25.7-33.7); MCHC 33.7 g/dl (32.0-35.9); MEAN CELL VOLUME 90.9 fl (80-96); MEAN PLT VOLUME 7.7 fl (7.5-11.1); NEUTROPHILS 83.4 % (42.8-82.8); PLATELET COUNT 222 K/MM3 (134-434); RDW 12.9 % (11.9-15.9); WHITE BLOOD COUNT 9.8 K/mm3 (4.0-10.0)
[2016-08-12 07:58] LABS: ALBUMIN 2.7 g/dl (3.4-5.0); ALK PHOS 65 U/L (45-117); ANION GAP 8 (8-16); BILIRUBIN,TOTAL 0.5 mg/dL (0.2-1.0); CALCIUM 8.6 mg/dL (8.5-10.1); CO2 26 mmol/L (21-32); CREATININE 0.7 mg/dL (0.7-1.3); GLUCOSE,RANDOM 117 mg/dL (74-106); SGOT/AST 28 U/L (15-37); SGPT/ALT 16 U/L (12-78); TOT PROT 5.1 g/dl (6.4-8.2)
--- NOTE | 2016-08-12 08:04 | PN ---
Progress Note (short form) - Note Progress Note: POD #2 s/p lap appy (perforated necrotic appendix w/ purulence) No acute events since surgery per RN notes. Resting comfortably without complaint. Tolerating PO diet. Ambulating. Voiding without difficulty. Denies n/v/f/c, CP or SOB. Last Vital Signs Temp Pulse Resp BP Pulse Ox 98.4 F 55 L 16 131/61 98 08/12/16 07:07 08/12/16 07:07 08/12/16 07:07 08/12/16 07:07 08/11/16 21:00 CBC 08/12/16 06:00 PE General: NAD ABD: all surgical ports intact. NBA 90mL (serous) since 4am LE: soft. nt b/l <Jose Koenig - Last Filed: 08/12/16 08:10> - Note Progress Note: Agree POD 2 Doing well No pain Tolerating diet AVSS Abd soft, NBA serosanguinous WBC 9.8 Will likely remove NBA drain in am Plan for discharge in am on PO antibiotics <Toro Wilkinson - Last Filed: 08/12/16 12:58> Problem List - Problems (1) S/P laparoscopic appendectomy Assessment/Plan: POD #2 s/p lap appy (perforated necrotic appendix w/ purulence) Continue ambulating. Regular diet Pain management prn cont medical management <Jose Koenig P - Last Filed: 08/12/16 08:10> - Problems (1) Appendicitis, acute Code(s): K35.80 - UNSPECIFIED ACUTE APPENDICITIS Qualifiers: Acute appendicitis type: unspecified acute appendicitis type Qualified Code(s): K35.80 - Unspecified acute appendicitis <Toro Wilkinson - Last Filed: 08/12/16 12:58>
[2016-08-12] MEDS: cefTRIAXone 2 GM/100 ML BAG (PRE-DOCKED) IVPB SCH (09:23)
[2016-08-12] MEDS: ENOXAPARIN NA (PORCINE) 40 MG/0.4 ML DISP.SYRIN SQ SCH (09:24)
--- NOTE | 2016-08-12 09:35 | PN ---
Progress Note, Physician Chief Complaint: ID Post op day 2 Rx No complaints Liquids now Ceftriaxone and metronidazole - Current Medication List Current Medications: Active Medications Acetaminophen (Tylenol -) 650 mg PO Q4H PRN PRN Reason: FEVER OR PAIN Last Admin: 08/12/16 05:25 Dose: 650 mg Ceftriaxone Sodium (Rocephin 2gm Ivpb (Pre-Docked)) 2 gm IVPB DAILY [facility] Last Admin: 08/12/16 09:23 Dose: 2 gm Enoxaparin Sodium (Lovenox -) 40 mg SQ DAILY [facility] Last Admin: 08/12/16 09:24 Dose: 40 mg Hydromorphone HCl (Dilaudid Injection -) 1 mg IVPB Q4H PRN PRN Reason: PAIN Sodium Chloride (Normal Saline -) 1,000 mls @ 150 mls/hr IV ASDIR [facility] Last Admin: 08/12/16 01:05 Dose: 150 mls/hr Metronidazole (Flagyl 500mg Premixed Ivpb -) 100 mls @ 100 mls/hr IVPB Q8H-IV [facility] Last Admin: 08/12/16 02:04 Dose: 100 mls/hr Oxycodone HCl (Roxicodone -) 10 mg PO Q4H PRN PRN Reason: PAIN Last Admin: 08/12/16 03:50 Dose: 10 mg - Objective Vital Signs: Vital Signs Temperature 98.4 F 08/12/16 07:07 Pulse Rate 55 L 08/12/16 07:07 Respiratory Rate 16 08/12/16 07:07 Blood Pressure 131/61 08/12/16 07:07 O2 Sat by Pulse Oximetry (%) 98 08/11/16 21:00 Constitutional: Yes: Well Nourished, No Distress HENT: Yes: WNL, Atraumatic Neck: Yes: WNL, Supple Cardiovascular: Yes: S1, S2 Respiratory: Yes: WNL, Regular, CTA Bilaterally Gastrointestinal: Yes: Soft, Other (Drain) Labs: CBC, BMP 08/12/16 06:00 08/12/16 06:00 Problem List - Problems (1) Appendicitis, acute Code(s): K35.80 - UNSPECIFIED ACUTE APPENDICITIS Qualifiers: Acute appendicitis type: unspecified acute appendicitis type Qualified Code(s): K35.80 - Unspecified acute appendicitis Assessment/Plan Laboratory Tests 08/12/16 08/12/16 06:00 06:00 WBC 9.8 D Hgb 12.4 Plt Count 222 BUN 12 Creatinine 0.7 Assessment Perforated necrotic appendix Plan Doing well continue current therapy Kurtis STANLEY
--- NOTE | 2016-08-12 12:50 | PN ---
Physical Exam: SUBJECTIVE: Patient seen ambulating in hallway. Examined at bedside. Feels better, pain is minimal. OBJECTIVE: Vital Signs Period Temp Pulse Resp BP Sys/Reagan Pulse Ox Last 24 Hr 98.1 F-98.4 F 55-84 16-18 116-131/51-72 98-98 GENERAL: The patient is awake, alert, and fully oriented, in no acute distress. HEAD: Normal with no signs of trauma. EYES: PERRL, extraocular movements intact, sclera anicteric, conjunctiva clear. No ptosis. LUNGS: Breath sounds equal, clear to auscultation bilaterally, no wheezes, no crackles, no accessory muscle use. HEART: Regular rate and rhythm, S1, S2 without murmur, rub or gallop. ABDOMEN: Two mid-abdomen ports examined, wounds closed, no exudate, no erythema ; suprapubic wound has surgical packing and NBA drain with <10 cc sanguinous fluid EXTREMITIES: 2+ pulses, warm, well-perfused, no edema. NEUROLOGICAL: Cranial nerves II through XII grossly intact. Normal speech, steady gait PSYCH: Normal mood, normal affect. SKIN: Warm, dry, normal turgor, no rashes or lesions noted Laboratory Results - last 24 hr 08/12/16 08/12/16 06:00 06:00 WBC 9.8 D RBC 4.03 Hgb 12.4 Hct 36.6 MCV 90.9 MCHC 33.7 RDW 12.9 Plt Count 222 MPV 7.7 Neutrophils % 83.4 H Lymphocytes % 8.3 D Monocytes % 7.5 Eosinophils % 0.6 D Basophils % 0.2 Sodium 139 Potassium 3.9 Chloride 105 Carbon Dioxide 26 Anion Gap 8 BUN 12 Creatinine 0.7 Creat Clearance w eGFR > 60 Random Glucose 117 H D Calcium 8.6 Total Bilirubin 0.5 D AST 28 D ALT 16 D Alkaline Phosphatase 65 D Total Protein 5.1 L D Albumin 2.7 L D Current Medications Generic Name Dose Route Start Last Admin Trade Name Freq PRN Reason Stop Dose Admin Acetaminophen 650 mg 08/11/16 15:02 08/12/16 05:25 Tylenol - PO 650 mg Q4H PRN Administration FEVER OR PAIN Ceftriaxone Sodium 2 gm 08/11/16 10:00 08/12/16 09:23 Rocephin 2gm Ivpb (Pre-Docked) IVPB 2 gm DAILY JEWELL Administration Enoxaparin Sodium 40 mg 08/11/16 10:00 08/12/16 09:24 Lovenox - SQ 40 mg DAILY JEWELL Administration Hydromorphone HCl 1 mg 08/10/16 12:32 Dilaudid Injection - IVPB Q4H PRN PAIN Sodium Chloride 1,000 mls @ 150 mls/hr 08/10/16 11:15 08/12/16 01:05 Normal Saline - IV 150 mls/hr ASDIR JEWELL Administration Metronidazole 100 mls @ 100 mls/hr 08/10/16 18:00 08/12/16 10:31 Flagyl 500mg Premixed Ivpb - IVPB 100 mls/hr Q8H-IV JEWELL Administration Oxycodone HCl 10 mg 08/11/16 15:02 08/12/16 03:50 Roxicodone - PO 10 mg Q4H PRN Administration PAIN ASSESSMENT/PLAN: 20 year-old male with no significant PMH admitted for perforated necrotic apendicitis with purulent abdominal collection s/p lap appendectomy on 08/10. Perforated appendix with abscess --patient doing well --afebrile, WBC now wnl --continue ceftriaxone (day #3) and metronidazole (day #3) --tolerating regular diet, no BM yet FEN Fluids: PO intake adequate Electrolytes: replete as indicated Nutrition: regular diet DVT prophylaxis: lovenox, oob, ambulation Dispo: continues to require inpatient care. Full Code. Visit type - Emergency Visit Emergency Visit: Yes ED Registration Date: 08/10/16 Care time: The patient presented to the Emergency Department on the above date and was hospitalized for further evaluation of their emergent condition. - New Patient This patient is new to me today: Yes Date on this admission: 08/12/16 - Critical Care Critical Care patient: No
[2016-08-13] MEDS: oxyCODONE HCL 5 MG TABLET PO PRN ×2 (00:16→10:40)
[2016-08-13] MEDS: SODIUM CHLORIDE 1,000 ML IV SCH (02:00)
[2016-08-13] MEDS: METRONIDAZOLE 500 MG PREMIXED 100 ML IVPB SCH ×2 (02:32→09:15)
[2016-08-13 07:34] LABS: BASOPHIL 0.3 % (0-2.0); EOSINOPHIL 1.8 % (0-4.5); MCH 30.7 pg (25.7-33.7); MCHC 33.7 g/dl (32.0-35.9); MEAN CELL VOLUME 91.1 fl (80-96); MEAN PLT VOLUME 7.2 fl (7.5-11.1); NEUTROPHILS 73.2 % (42.8-82.8); PLATELET COUNT 235 K/MM3 (134-434); RDW 12.7 % (11.9-15.9); WHITE BLOOD COUNT 8.8 K/mm3 (4.0-10.0)
[2016-08-13 08:27] LABS: ALBUMIN 2.7 g/dl (3.4-5.0); ALK PHOS 71 U/L (45-117); ANION GAP 7 (8-16); BILIRUBIN,TOTAL 0.5 mg/dL (0.2-1.0); CALCIUM 7.6 mg/dL (8.5-10.1); CO2 27 mmol/L (21-32); CREATININE 0.6 mg/dL (0.7-1.3); GLUCOSE,RANDOM 93 mg/dL (74-106); SGOT/AST 24 U/L (15-37); SGPT/ALT 22 U/L (12-78); TOT PROT 5.3 g/dl (6.4-8.2)
[2016-08-13] MEDS: cefTRIAXone 2 GM/100 ML BAG (PRE-DOCKED) IVPB SCH (09:15)
[2016-08-13] MEDS: ENOXAPARIN NA (PORCINE) 40 MG/0.4 ML DISP.SYRIN SQ SCH (09:15)
--- NOTE | 2016-08-13 10:28 | PN ---
[id number]/ purulence) No acute events since surgery per RN notes. Resting comfortably without complaint. Tolerating PO diet. Ambulating. Voiding without difficulty. Denies n/v/f/c, CP or SOB. AVSS. Afebrile. PE General: alert. nad Abd: all surgical ports in tact. No hematoma. NBA dc'd on rounds LE: soft. nt b/l <Jose Koenig P - Last Filed: 08/13/16 10:28> - Note Progress Note: Agree Doing well AVSS NBA removed Pain controlled Discharge home on antibiotics Follow up in 1-2 weeks <Toro Wilkinson - Last Filed: 08/13/16 10:55> Problem List - Problems (1) S/P laparoscopic appendectomy Assessment/Plan: POD #2 Doing well. Cleared for discharge from surgical service Script for antibiotic and pain management escribed. <Jose Koenig P - Last Filed: 08/13/16 10:28> - Problems (1) Appendicitis, acute Code(s): K35.80 - UNSPECIFIED ACUTE APPENDICITIS Qualifiers: Acute appendicitis type: unspecified acute appendicitis type Qualified Code(s): K35.80 - Unspecified acute appendicitis <Toro Wilkinson - Last Filed: 08/13/16 10:55>
[2016-08-13] MEDS: ACETAMINOPHEN 325 MG TABLET (FP) PO PRN (10:42)
[2016-08-13 11:54] VITALS: BP 131/73
--- NOTE | 2016-08-13 12:14 | PATH ---
Surgical Pathology Report Patient Name: SACHA SMITH [facility]. Rec. #: [id number] /Age/Gender: 1995 (Age: 20) / M Account: [id number] Location: [facility] MED/SURG Taken: 08/10/2016 Received: 08/12/2016 Reported: 08/13/2016 Physicians: Toro Wilkinson M.D. Specimen(s) Received APPENDIX Clinical History Acute appendicitis Final Diagnosis APPENDIX, APPENDECTOMY: ACUTE APPENDICITIS AND PERIAPPENDICITIS. Electronically Signed Jonathan Cobian M.D. Gross Description Received in formalin, labeled "appendix," is a 5 cm. in length vermiform appendix with a stapled margin of resection and minimal attached fat. The serosa is boyd with attached exudate. Sectioning reveals a focally hemorrhagic lumen and a possible periappendiceal abscess. The wall of the appendix averages 0.2 cm. in thickness. Customer Technical Services Manager sections are submitted in one cassette. 08/12/2016 saudi08/12/2016
--- NOTE | 2016-08-13 14:16 | PN ---
Progress Note, Physician History of Present Illness: Doing well No c/o abdominal pain Tolerating regular diet Afebrile WBC WNL - Current Medication List Current Medications: Active Medications Acetaminophen (Tylenol -) 650 mg PO Q4H PRN PRN Reason: FEVER OR PAIN Last Admin: 08/13/16 10:42 Dose: 650 mg Ceftriaxone Sodium (Rocephin 2gm Ivpb (Pre-Docked)) 2 gm IVPB DAILY [facility] Last Admin: 08/13/16 09:15 Dose: 2 gm Enoxaparin Sodium (Lovenox -) 40 mg SQ DAILY [facility] Last Admin: 08/13/16 09:15 Dose: 40 mg Sodium Chloride (Normal Saline -) 1,000 mls @ 150 mls/hr IV ASDIR [facility] Last Admin: 08/13/16 02:00 Dose: 150 mls/hr Metronidazole (Flagyl 500mg Premixed Ivpb -) 100 mls @ 100 mls/hr IVPB Q8H-IV [facility] Last Admin: 08/13/16 09:15 Dose: 100 mls/hr Oxycodone HCl (Roxicodone -) 5 mg PO Q6H PRN PRN Reason: PAIN Last Admin: 08/13/16 10:40 Dose: 5 mg - Objective Vital Signs: Vital Signs Temperature 98.2 F 08/13/16 10:00 Pulse Rate 63 08/13/16 10:00 Respiratory Rate 18 08/13/16 10:00 Blood Pressure 131/73 08/13/16 10:00 O2 Sat by Pulse Oximetry (%) 98 08/13/16 09:00 Constitutional: Yes: No Distress Eyes: Yes: Conjunctiva Clear Cardiovascular: Yes: Regular Rate and Rhythm, S1, S2 Respiratory: Yes: CTA Bilaterally Gastrointestinal: Yes: Normal Bowel Sounds, Soft, Tenderness, Other (mild diffuse incisional tenderness) Edema: No Labs: CBC, BMP 08/13/16 06:00 08/13/16 06:00 Assessment/Plan POD ## Perforated appendix Substitute po Augmentin 875mg bid x 7d OK for discharge from ID standpoint
[2016-08-13 14:56] VITALS: PULSE 70; TEMP 98.6
--- NOTE | 2016-08-13 15:24 | PN ---
Physical Exam: SUBJECTIVE: Patient seen and examined OBJECTIVE: Vital Signs Period Temp Pulse Resp BP Sys/Reagan Pulse Ox Last 24 Hr 98.2 F-98.8 F 63-74 18-20 122-131/48-79 98-98 GENERAL: The patient is awake, alert, and fully oriented, in no acute distress. HEAD: Normal with no signs of trauma. EYES: PERRL, extraocular movements intact, sclera anicteric, conjunctiva clear. No ptosis. ENT: Ears normal, nares patent, oropharynx clear without exudates, moist mucous membranes. NECK: Trachea midline, full range of motion, supple. LUNGS: Breath sounds equal, clear to auscultation bilaterally, no wheezes, no crackles, no accessory muscle use. HEART: Regular rate and rhythm, S1, S2 without murmur, rub or gallop. ABDOMEN: Soft, nontender, nondistended, normoactive bowel sounds, no guarding, no rebound, no hepatosplenomegaly, no masses. EXTREMITIES: 2+ pulses, warm, well-perfused, no edema. NEUROLOGICAL: Cranial nerves II through XII grossly intact. Normal speech, gait not observed. PSYCH: Normal mood, normal affect. SKIN: Warm, dry, normal turgor, no rashes or lesions noted Laboratory Results - last 24 hr 08/13/16 08/13/16 06:00 06:00 WBC 8.8 RBC 4.04 Hgb 12.4 Hct 36.8 MCV 91.1 MCHC 33.7 RDW 12.7 Plt Count 235 MPV 7.2 L Neutrophils % 73.2 Lymphocytes % 13.4 D Monocytes % 11.3 H Eosinophils % 1.8 D Basophils % 0.3 Sodium 137 Potassium 3.8 Chloride 103 Carbon Dioxide 27 Anion Gap 7 L BUN 6 L D Creatinine 0.6 L Creat Clearance w eGFR > 60 Random Glucose 93 D Calcium 7.6 L Magnesium 2.0 Total Bilirubin 0.5 AST 24 ALT 22 D Alkaline Phosphatase 71 Total Protein 5.3 L Albumin 2.7 L Active Medications Generic Name Dose Route Start Last Admin Trade Name Freq PRN Reason Stop Dose Admin Acetaminophen 650 mg 08/11/16 15:02 08/13/16 10:42 Tylenol - PO 650 mg Q4H PRN Administration FEVER OR PAIN Amoxicillin/Clavulanate Potassium 1 tab 08/13/16 17:30 Augmentin - 875mg Tablet PO BID@0800,1730 JEWELL Enoxaparin Sodium 40 mg 08/11/16 10:00 08/13/16 09:15 Lovenox - SQ 40 mg DAILY [facility] Administration Sodium Chloride 1,000 mls @ 150 mls/hr 08/10/16 11:15 08/13/16 02:00 Normal Saline - IV 150 mls/hr ASDIR [facility] Administration ASSESSMENT/PLAN:
--- NOTE | 2016-08-13 15:25 | DS ---
Physical Exam: SUBJECTIVE: Patient seen and examined at bedside, states doing well, tolerating regular diet. Complains of minimal pain to abdomen. OBJECTIVE: Vital Signs Period Temp Pulse Resp BP Sys/Reagan Pulse Ox Last 24 Hr 98.2 F-98.8 F 63-74 18-20 122-131/48-79 98-98 PHYSICAL EXAM GENERAL: The patient is asleep, arousable to voice, alert, and fully oriented, in no acute distress. HEAD: Normal with no signs of trauma. EYES: PERRL, extraocular movements intact, sclera anicteric, conjunctiva clear. ENT: Ears normal, nares patent, oropharynx clear without exudates, moist mucous membranes. NECK: Trachea midline, full range of motion, supple. LUNGS: Breath sounds equal, clear to auscultation bilaterally, no wheezes, no crackles, no accessory muscle use. HEART: Regular rate and rhythm, S1, S2 without murmur, rub or gallop. ABDOMEN: Two sites to mid- abdomen from removed ports examined, no exudate/ erythema. Suprapubic wound examined, dressed with gauze, no erythema. Soft, tender, nondistended, normoactive bowel sounds, no guarding, no rebound, no hepatosplenomegaly, no masses. EXTREMITIES: 2+ pulses, warm, well-perfused, no edema. NEUROLOGICAL: Cranial nerves II through XII grossly intact. Normal speech, gait not observed. PSYCH: Normal mood, normal affect. SKIN: Warm, dry, normal turgor, no rashes or lesions noted. LABS CBCD WBC 8.8 K/mm3 (4.0-10.0) 08/13/16 06:00 RBC 4.04 M/mm3 (4.00-5.60) 08/13/16 06:00 Hgb 12.4 GM/dL (11.7-16.9) 08/13/16 06:00 Hct 36.8 % (35.4-49) 08/13/16 06:00 MCV 91.1 fl (80-96) 08/13/16 06:00 MCHC 33.7 g/dl (32.0-35.9) 08/13/16 06:00 RDW 12.7 % (11.9-15.9) 08/13/16 06:00 Plt Count 235 K/MM3 (134-434) 08/13/16 06:00 MPV 7.2 fl (7.5-11.1) L 08/13/16 06:00 CMP Sodium 137 mmol/L (136-145) 08/13/16 06:00 Potassium 3.8 mmol/L (3.5-5.1) 08/13/16 06:00 Chloride 103 mmol/L (98-107) 08/13/16 06:00 Carbon Dioxide 27 mmol/L (21-32) 08/13/16 06:00 Anion Gap 7 (8-16) L 08/13/16 06:00 BUN 6 mg/dL (7-18) L D 08/13/16 06:00 Creatinine 0.6 mg/dL (0.7-1.3) L 08/13/16 06:00 Creat Clearance w eGFR > 60 (>60) 08/13/16 06:00 Calcium 7.6 mg/dL (8.5-10.1) L 08/13/16 06:00 Total Bilirubin 0.5 mg/dL (0.2-1.0) 08/13/16 06:00 AST 24 U/L (15-37) 08/13/16 06:00 ALT 22 U/L (12-78) D 08/13/16 06:00 Alkaline Phosphatase 71 U/L (45-117) 08/13/16 06:00 Total Protein 5.3 g/dl (6.4-8.2) L 08/13/16 06:00 Albumin 2.7 g/dl (3.4-5.0) L 08/13/16 06:00 Microbiology 08/11/16 16:22 Urine - Urine Clean Catch Urine Culture - Final NO GROWTH OBTAINED 08/10/16 01:45 Blood - Peripheral Venous Blood Culture - Preliminary NO GROWTH OBTAINED AFTER 72 HOURS, INCUBATION TO CONTINUE FOR 2 DAYS. 08/10/16 01:45 Blood - Peripheral Venous Blood Culture - Preliminary NO GROWTH OBTAINED AFTER 72 HOURS, INCUBATION TO CONTINUE FOR 2 DAYS. Current Medications Generic Name Dose Route Start Last Admin Trade Name Freq PRN Reason Stop Dose Admin Acetaminophen 650 mg 08/11/16 15:02 08/13/16 10:42 Tylenol - PO 650 mg Q4H PRN Administration FEVER OR PAIN Amoxicillin/Clavulanate Potassium 1 tab 08/13/16 17:30 Augmentin - 875mg Tablet PO BID@0800,1730 [facility] Enoxaparin Sodium 40 mg 08/11/16 10:00 08/13/16 09:15 Lovenox - SQ 40 mg DAILY [facility] Administration Sodium Chloride 1,000 mls @ 150 mls/hr 08/10/16 11:15 08/13/16 02:00 Normal Saline - IV 150 mls/hr [facility] Administration HOSPITAL COURSE: Date of Admission:08/10/16 Date of Discharge: 08/13/16 20 year-old male with no significant PMH admitted for acute appendicitis. Imaging (08/09) - CT/ABDOMEN & PELVIS CT with Contrast - findings consistent with acute appendicitis without abscess formation. Procedure (08/10) - Laparoscopic appendectomy - findings: perforated necrotic appendix with purulent intraabdominal fluid - started on ceftriaxone and metronidazole POD#1 (08/11) - continued IV antibiotics; WBC 14.2 - Ambulated, diet advanced, serosanguinous NBA drainage. Pain management PRN POD#2 (08/12) - WBC trended down (9.8), afebrile - IV antibiotics continued - Tolerated regular diet POD#3 (08/13) - NBA drain d/c'ed on rounds. WBC 8.8. - Cleared for discharge from surgical service. - Discharged on PO antibiotics and pain management. Minutes to complete discharge: 35 Discharge Summary Reason For Visit: ACUTE APPENDICITIS Current Active Problems Appendicitis, acute (Acute) DVT prophylaxis (Acute) S/P laparoscopic appendectomy (Acute) Condition: Improved - Instructions Diet, Activity, Other Instructions: A prescription has been sent to your pharmacy for Augmentin which is an antibiotic. Take this medication as directed and be sure to FINISH all the medication. It is VERY IMPORTANT that you follow up with your surgeon, Dr. Wilkinson. Call his office today to make an appointment. His contact information is enclosed in this discharge packet. Return to the emergency department for any new or worsening symptoms. Referrals: Toro Wilkinson MD [Staff Physician] - 1 Week Disposition: HOME - Home Medications Comprehensive Discharge Medication List: Ambulatory Orders Levofloxacin [Levaquin -] 500 mg PO DAILY #10 tablet 08/10/16 Metronidazole [Flagyl -] 500 mg PO TID #10 tablet 08/10/16 Oxycodone HCl/Acetaminophen [Percocet 5-325 mg Tablet] 1 - 2 tab PO Q6H #28 tab MDD 4 08/10/16 This patient is new to me today: No Emergency Visit: Yes ED Registration Date: 08/10/16 Care time: The patient presented to the Emergency Department on the above date and was hospitalized for further evaluation of their emergent condition. Critical Care patient: No - Discharge Referral Referred to [facility] No
[2016-08-13] MEDS ORDERED: AMOX TR/POT CLAV 875MG/125MG TABLETS (FP) PO SCH (17:30)
== END 2016-08-13 16:55 | disposition home or self-care (01) | DRG 225 ==
LOC: JER 20:19 → JERBED 08-10 06:41 → J8W 08-10 15:19
PROVIDERS: ADMIT Internal Medicine; ATTEND Nurse Practitioner Acute Care
PROC: 0DTJ4ZZ Resection of Appendix, Percutaneous Endoscopic Approach (ICD-10-PCS; principal; 2016-08-10 09:00)
DX: K35.80 Unspecified acute appendicitis (principal); N39.0 Urinary tract infection, site not specified
CPT/HCPCS: 36415; 74177-TC; 80048; 80053; 81003; 81015; 83735; 85025; 86140; 86850; 86900; 86901; 87040; 87086; 87389; 88304-TC; 94760; 99282-25; Q9967